=== PATIENT | male | born 1970 | race Caucasian/White ===

== ENCOUNTER 2018-03-23 22:16 | Emergency (ER) | payer BC ==
[2018-03-23 23:13] VITALS: BP 100/66
== END 2018-03-24 00:11 | disposition left against medical advice (07) ==
LOC: ER 22:16
DX: M54.5 Low back pain (principal); Z53.21 Procedure and treatment not carried out due to patient leaving prior to being seen by health care provider

== ENCOUNTER → 2018-03-25 | Outpatient (CLI) | payer BC ==
[2018-03-23 23:13] VITALS: BP 100/66
--- NOTE | 2018-03-26 08:11 | RAD ---
Right hip, 2 views, 03/25/2018: HISTORY: Hip pain No fracture or dislocation is identified. There is mild narrowing of the right hip joint with subchondral sclerosis and mild marginal spurring. The periarticular soft tissues are unremarkable. IMPRESSION: 1. No acute right hip abnormality is detected. 2. Mild degenerative change at the right hip joint. Electronically signed by: Dustin Ordonez MD (03/26/2018 8:09 AM) [facility]
== END | disposition home or self-care (01) ==
LOC: RAD 16:56
PROVIDERS: ATTEND Family Medicine
DX: M16.11 Unilateral primary osteoarthritis, right hip (principal); I10 Essential (primary) hypertension
CPT/HCPCS: 73502

== ENCOUNTER → 2018-04-06 | Outpatient (CLI) | payer BC ==
[2018-03-23 23:13] VITALS: BP 100/66
--- NOTE | 2018-04-06 13:32 | RAD ---
Lumbar spine, 3 views, 04/06/2018: HISTORY: Low back pain The lumbar vertebral heights and intervertebral disc spaces are well-maintained. No fracture or dislocation is identified. There are minimal sclerotic changes involving facet joints in the lower lumbar spine. Aortic calcific plaquing is present. IMPRESSION: No acute lumbar spine abnormality is detected. Thoracic spine, 3 views, 04/06/2018: No fracture or dislocation is identified. There are mild scattered marginal spurs. The paraspinous soft tissues are unremarkable. IMPRESSION: 1. Mild marginal spurring. 2. No acute abnormality is detected. Electronically signed by: Dustin Ordonez MD (04/06/2018 1:28 PM) [facility]
== END | disposition home or self-care (01) ==
LOC: RAD 09:31
PROVIDERS: ATTEND Physician Assistant Medical
DX: M46.04 Spinal enthesopathy, thoracic region (principal); I70.0 Atherosclerosis of aorta; I10 Essential (primary) hypertension; M16.11 Unilateral primary osteoarthritis, right hip
CPT/HCPCS: 72072; 72100

== ENCOUNTER → 2018-04-20 | Outpatient (CLI) | payer BC ==
[2018-03-23 23:13] VITALS: BP 100/66
[~2018-04-20] MED LIST: BUPIVACAINE MPF 0.5% 10 ML VIAL for KCIC. IJ ONE; IOHEXOL 300 MG/ML 50 ML VIAL. INT ART ONE; LIDOCAINE 1% Multi-Dose 20 ML VIAL. ID ONE; methylPREDNISolone ACETATE 40 MG/ML VIAL. INT ART ONE
--- NOTE | 2018-04-21 16:49 | KCIC ---
PROCEDURE Therapeutic right hip injection using fluoroscopic guidance. HISTORY Hip pain. Pain is chronic. TECHNIQUE The procedure was explained to the patient as were potential risks, including infection, bleeding or allergic reaction. All questions were answered. Informed written and verbal consent was obtained. The hip was prepped and draped in the usual sterile manner. Following administration of local anesthetic, a 22-gauge spinal needle was advanced into the hip joint without difficulty, with care taken to avoid the vascular structures. Stylet was removed and following negative aspiration, a mixture of 4 cc Omnipaque-300, 2 cc (80 mg) Depo-Medrol, 4 cc 0.5% Marcaine and 4 cc 1% lidocaine were injected without difficulty. Fluoroscopy demonstrates uniform and satisfactory distribution of the injection through the hip. The needle was removed. There was good hemostasis at the injection site. The patient left in stable condition without immediate complication. A single spot image was obtained. Note there is communication of the joint capsule with the iliopsoas bursa. FLUOROSCOPY TIME: 15 seconds Electronically signed by: Rasheed Lopez MD (04/21/2018 4:46 PM) [facility]
== END | disposition home or self-care (01) ==
LOC: KCIC 10:09
PROVIDERS: ATTEND Family Medicine
DX: M25.551 Pain in right hip (principal); G89.29 Other chronic pain; Z88.5 Allergy status to narcotic agent
CPT/HCPCS: 20610; 77002; J1030; Q9967

== ENCOUNTER 2020-04-14 15:55 | Emergency (ER) | payer BC ==
[~2020-04-14] VITALS: Ht 180.3 cm; Wt 110.0 kg
--- NOTE | 2020-04-14 16:10 | PHYS DOC ---
Past Medical History Past Medical History: Hypertension Past Surgical History: No Surgical History Smoking Status: Current Every Day Smoker Alcohol Use: Occasionally Drug Use: None General Adult EDM: Chief Complaint: ABDOMINAL PAIN HPI: HPI: The history was obtained from the patient. Patient is a 50-year-old male with PMH GERD, appendectomy who presents with a chief complaint of right lower quadrant abdominal pain. Patient states the pain began gradually yesterday. He states that involves his right lower quadrant. He states it is worse when he pushed on the area. He does note associated loose stool. He states he recently traveled like the [place]. Denies any exposure to well water or recent antibiotics. Denies any recent travel outside of the country. Denies urinary symptoms. Denies any masses or bulges in his groin. Denies syncope. States that his family physician wanted him evaluated in the emergency department today for potential surgical complication. Denies any fevers. Denies known exposure to coronavirus. States pain is sharp in nature. No other complaints. Review of Systems: Review of Systems: Constitutional: Denies fever or chills. [] Eyes: Denies change in visual acuity. [] HENT: Denies nasal congestion or sore throat. [] Respiratory: Denies cough or shortness of breath. [] Cardiovascular: Denies chest pain or edema. [] GI: Positive for abdominal pain and diarrhea : Denies dysuria. [] Musculoskeletal: Denies back pain or joint pain. [] Integument: Denies rash. [] Neurologic: Denies headache, focal weakness or sensory changes. [] Endocrine: Denies polyuria or polydipsia. [] Lymphatic: Denies swollen glands. [] Psychiatric: Denies depression or anxiety. [] Heart Score: Risk Factors: Risk Factors: DM, Current or recent (<one month) smoker, HTN, HLP, family history of CAD, obesity. Risk Scores: Score 0 - 3: 2.5% MACE over next 6 weeks - Discharge Home Score 4 - 6: 20.3% MACE over next 6 weeks - Admit for Clinical Observation Score 7 - 10: 72.7% MACE over next 6 weeks - Early Invasive Strategies Allergies: Allergies: Allergies Coded Allergies Type Severity Reaction Last Updated Verified morphine Adverse Reaction Mild Nausea and Vomiting 08/31/14 No Physical Exam: PE: Constitutional: Well developed, well nourished, no acute distress, non-toxic appearance. [] HENT: Normocephalic, atraumatic, bilateral external ears normal, oropharynx moist, no oral exudates, nose normal. [] Eyes: PERRLA, EOMI, conjunctiva normal, no discharge. [] Neck: Normal range of motion, no tenderness, supple, no stridor. [] Cardiovascular:Heart rate regular rhythm, no murmur [] Lungs & Thorax: Bilateral breath sounds clear to auscultation [] Abdomen: Tenderness palpation localized to the right lower quadrant. Involuntary guarding appreciated. No rigidity noted. Skin: Warm, dry, no erythema, no rash. [] Back: No tenderness, no CVA tenderness. [] Extremities: No tenderness, no cyanosis, no clubbing, ROM intact, no edema. [] Neurologic: Alert and oriented X 3, normal motor function, normal sensory function, no focal deficits noted. [] Psychologic: Affect normal, judgement normal, mood normal. [] Current Patient Data: Labs: Laboratory Tests Test 04/14/20 16:45 04/14/20 17:20 White Blood Count 6.6 x10^3/uL Red Blood Count 5.12 x10^6/uL Hemoglobin 16.1 g/dL Hematocrit 45.9 % Mean Corpuscular Volume 90 fL Mean Corpuscular Hemoglobin 32 pg Mean Corpuscular Hemoglobin Concent 35 g/dL Red Cell Distribution Width 12.7 % Platelet Count 185 x10^3/uL Neutrophils (%) (Auto) 43 % Lymphocytes (%) (Auto) 45 % Monocytes (%) (Auto) 9 % Eosinophils (%) (Auto) 2 % Basophils (%) (Auto) 1 % Neutrophils # (Auto) 2.9 x10^3/uL Lymphocytes # (Auto) 3.0 x10^3/uL Monocytes # (Auto) 0.6 x10^3/uL Eosinophils # (Auto) 0.2 x10^3/uL Basophils # (Auto) 0.0 x10^3/uL Sodium Level 140 mmol/L Potassium Level 4.0 mmol/L Chloride Level 103 mmol/L Carbon Dioxide Level 27 mmol/L Anion Gap 10 Blood Urea Nitrogen 11 mg/dL Creatinine 1.1 mg/dL Estimated GFR (Cockcroft-Gault) 70.3 BUN/Creatinine Ratio 10 Glucose Level 100 mg/dL Calcium Level 9.0 mg/dL Total Bilirubin 0.5 mg/dL Aspartate Amino Transf (AST/SGOT) 38 U/L Alanine Aminotransferase (ALT/SGPT) 86 U/L Alkaline Phosphatase 72 U/L Total Protein 7.2 g/dL Albumin 4.0 g/dL Albumin/Globulin Ratio 1.3 Lipase 130 U/L Urine Collection Type Void Urine Color Yellow Urine Clarity Clear Urine pH 5.5 Urine Specific Candor 1.010 Urine Protein Negative mg/dL Urine Glucose (UA) Negative mg/dL Urine Ketones (Stick) Negative mg/dL Urine Blood Trace Urine Nitrite Negative Urine Bilirubin Negative Urine Urobilinogen Dipstick 0.2 mg/dL Urine Leukocyte Esterase Negative Urine RBC 1-2 /HPF Urine WBC Occ /HPF Urine Squamous Epithelial Cells None /LPF Urine Bacteria 0 /HPF Urine Mucus Slight /LPF Current Medications Medications (Trade) Dose Ordered Sig/Corina Route PRN Reason Start Time Stop Time Status Last Admin Dose Admin Iohexol (Omnipaque 300 Mg/ml) 75 ml 1X ONCE IV 04/14/20 17:30 04/14/20 17:31 DC 04/14/20 17:36 Info (CONTRAST GIVEN -- Rx MONITORING) 1 each PRN DAILY PRN MC SEE COMMENTS 04/14/20 17:30 04/16/20 17:29 EKG: EKG: [] Radiology/Procedures: Radiology/Procedures: [facility] [address] [place] [address] IMAGING REPORT Signed PATIENT: ANABEL TABOR ACCOUNT: [id number] : 1970 LOCATION: ER AGE: 50 SEX: M EXAM STATUS: REG ER ORD. PHYSICIAN: JIM DIAZ DO REASON: RLQ pain. h/o appendectomy PROCEDURE: CT ABD PELV W/ IV CONTRST ONLY CT ABD PELV W/ IV CONTRST ONLY History: Reason: RLQ pain. h/o appendectomy Technique: After the administration of intravenous contrast, CT imaging was performed of the abdomen and pelvis. Multiplanar images are reviewed. Exposure: One or more of the following individualized dose reduction techniques were utilized for this examination: 1. Automated exposure control 2. Adjustment of the mA and/or kV according to patient size 3. Use of iterative reconstruction technique. Comparison: None Findings: Lower chest: Small right lower lobe lateral pleural-based 3 mm nodule (series 2 image 4). No consolidation or pleural effusion. Abdomen and pelvis: The liver, spleen, adrenal glands, pancreas and gallbladder are unremarkable. Tiny nonobstructing bilateral intrarenal calculi, right greater than left. No hydronephrosis. Mild nonspecific perinephric stranding, likely age-related or medical renal disease. Decompressed urinary bladder. Moderate distal ileal and terminal ileal wall thickening with minimal adjacent fat infiltration. Prior appendectomy. No evidence of bowel obstruction. No pathologic lymphadenopathy. No ascites. Small fat-containing umbilical hernia. Mild atheromatous plaque throughout the nonaneurysmal abdominal aorta and branch vessels. Bones: No pathologic osseous lesions. Impression: 1. Distal and terminal ileal wall thickening with adjacent fat infiltration, may represent infectious or inflammatory ileitis. 2. Nonobstructing bilateral intrarenal calculi. 3. Tiny right lower lobe pulmonary nodule. Recommend one-year follow-up if high risk. Electronically signed by: Ray Ruth DO (04/14/2020 5:58 PM) [facility] DICTATED and SIGNED BY: RAY RUTH DO DATE: 04/14/201757 [] Course & Med Decision Making: Course & Med Decision Making Pertinent Labs and Imaging studies reviewed. (See chart for details) [] Patient is an overall well-appearing 50-year-old male who presents with chief complaint of right lower quadrant abdominal discomfort. Initial vital signs unremarkable. He does note associated loose stool. Basic labs were obtained and were unremarkable. CT imaging is pending at this time. Stool studies were sent for analysis. CT materials no acute surgical abnormality. Patient does have findings of enteritis inflammatory versus infectious. Patient symptoms are most likely inflammatory nature. However, he will be discharged home with a prescription of Augmentin. He was instructed to fill this prescription in the next 2 to 3 days should his symptoms not improve or worsen. He has tolerated p.o. in the emergency department. His abdomen is benign on repeat examination. Vital signs been stable. He was instructed to follow-up with his primary care physician in the next 2 to 3 days. Return precautions discussed and understood. Stable for discharge home. COVID-19 CRITERIA: The patient was evaluated during the global COVID-19 pandemic, and that diagnosis was suspected/considered upon their initial presentation. Their evaluation, treatment and testing was consistent with c urrent guidelines for patients who present with complaints or symptoms that may be related to COVID-19. Clara Disclaimer: Clara Disclaimer: This electronic medical record was generated, in whole or in part, using a voice recognition dictation system. Departure Departure Impression: Primary Impression: Abdominal pain Qualified Codes: R10.31 - Right lower quadrant pain Additional Impression: Diarrhea Qualified Codes: R19.7 - Diarrhea, unspecified Disposition: 01 HOME, SELF-CARE Condition: STABLE Referrals: BORIS PARKS MD (PCP) Patient Instructions: Diarrhea Additional Instructions: You have been tested for or diagnosed with COVID-19. It is an infection caused by a new type of coronavirus. COVID-19 will cause cold-like or mild flu symptoms in most. It can cause more severe symptoms like problems breathing in some. There is no treatment for COVID-19. The body will clear the infection over time. Self-care will help to ease discomfort. Steps to Take: Self-Care Rest as needed. Healthy habits may help you feel better. Steps include: Choose healthy foods including fruits and vegetables. Drink water throughout the day. Get plenty of sleep each night. If you smoke, try to quit. It may ease breathing. Avoid alcohol. Keep Others Healthy The virus can spread to others. Droplets are released every time you sneeze or cough. The droplets can get into the mouth, nose, or eyes of people near you and lead to infection. To lower the chances of spreading COVID-19 to others: Stay at home until your doctor has said it is safe to leave. If you tested positive this will mean staying isolated until both of the following are true: At least 7 days have passed since the start of illness. You are free of fever for at least 72 hours without the use of medicine. During this time: - Avoid public areas, events, or transportation. Do not return to work or school until your doctor has said it is safe to do so. - Call ahead if you need to go to a medical center. Let them know you may have COVID-19. It will help them guide you where to go. They may also ask you to wear a facemask when you come to the office. - If you call for emergency medical services, let them know you may have COVID- 19. While at home: - Try to avoid close contact with others. Stay about 6 feet away. - If possible, spend most of your time in a separate room from others. - Use a face mask if you will be in close contact with others such as sharing a room or vehicle. - Have someone wipe down common surfaces in the home. Use household generator mechanic every day on areas like doorknobs, counters, or sinks. - Cough or sneeze into a tissue. Throw the tissue away right after use. If a tissue is not available, cough or sneeze into your elbow. - Wash your hands often. Wash them after sneezing or coughing. Use soap and water and wash for at least 20 seconds. Alcohol based hand plate cleaner can be used if soap and marcso er is not available. - Do not prepare food for others. Avoid sharing personal items like forks, spoons, or toothbrushes. - Avoid close contact with pets while you are sick. There is no evidence of the virus passing to pets. This is a safety step until more is known about this virus. Isolation can be frustrating. Social interaction can help. Keep in touch with friends and family through phone and tech options. You can still interact with others in your home, just keep a safe distance of about 6 feet. Follow-up: Your doctors office will check in with you to see if there are any changes in your health. You may be asked to keep track of symptoms to share with them. They will also let you know when you are clear to be in public again. Problems to Look Out For: Contact your doctor if your recovery is not going as you expect. Get emergency care if you have problems such as: - Trouble breathing - Nonstop chest pain or pressure - Changes in awareness, confusion, or problems waking - Lips or face have bluish color - Worsening of symptoms If you think you have an emergency, call for emergency medical services right away. [facility] Ondansetron Hcl (ZOFRAN) 4 Mg Tablet 4 MG PO PRN TID PRN for NAUSEA, #9 nausea/vomiting Prov: JIM DIAZ DO 04/14/20 Amoxicillin/Potassium Clav (AUGMENTIN 875-125 TABLET) 1 Each Tablet 1 TAB PO BID for 10 Days, #20 TAB 0 Refills Prov: JIM DIAZ DO 04/14/20 Justicifation of Admission Dx: Justifications for Admission: Justification of Admission Dx: N/A JIM DIAZ DO Apr 14, 2020 16:10
[2020-04-14 16:40] VITALS: BP 124/78
[2020-04-14 16:59] LABS: BASO % 1 % (0-3); EOS # 0.2 x10^3/uL (0.0-0.7); EOS % 2 % (0-3); HEMATOCRIT 45.9 % (39.0-53.0); HEMOGLOBIN 16.1 g/dL (13.0-17.5); LYMPH % 45 % (24-48); MEAN CORPUSCULAR HEMOGLOBIN 32 pg (25-35); MEAN CORPUSCULAR HGB CONC 35 g/dL (31-37); MEAN CORPUSCULAR VOLUME 90 fL (79-100); MONO # 0.6 x10^3/uL (0.0-1.1); MONO % 9 % (0-9); NEUT # 2.9 x10^3/uL (1.8-7.7); NEUT % 43 % (31-73); PLATELET COUNT 185 x10^3/uL (140-400); RED BLOOD COUNT 5.12 x10^6/uL (4.30-5.70); RED CELL DISTRIBUTION WIDTH 12.7 % (11.5-14.5); WHITE BLOOD COUNT 6.6 x10^3/uL (4.0-11.0)
[2020-04-14 17:11] LABS: CREATININE 1.1 mg/dL (0.7-1.3); GFR 70.3
[2020-04-14 17:17] LABS: ALBUMIN/GLOBULIN RATIO 1.3 (1.0-1.7); TOTAL BILIRUBIN 0.5 mg/dL (0.2-1.0); TOTAL PROTEIN 7.2 g/dL (6.4-8.2)
[2020-04-14] MEDS ORDERED: CONTRAST GIVEN. MC PRN (17:30)
[2020-04-14] MEDS ORDERED: IOHEXOL 300 MG/ML 100ML VIAL. IV ONE (17:30)
[2020-04-14 17:32] LABS: BILIRUBIN,URINE NEGATIVE (NEG); CLARITY,URINE CLEAR; COLOR,URINE YELLOW; NITRITE,URINE NEGATIVE (NEG); PH,URINE 5.5 (<5.0-8.0); PROTEIN,URINE NEGATIVE (NEG-TRACE); UROBILINOGEN,URINE 0.2 mg/dL (0.2 mg/dL)
[2020-04-14 17:37] LABS: BACTERIA,URINE 0 /HPF (0-FEW); WBC,URINE OCC /HPF (0-4)
--- NOTE | 2020-04-14 18:01 | RAD ---
CT ABD PELV W/ IV CONTRST ONLY History: Reason: RLQ pain. h/o appendectomy Technique: After the administration of intravenous contrast, CT imaging was performed of the abdomen and pelvis. Multiplanar images are reviewed. Exposure: One or more of the following individualized dose reduction techniques were utilized for this examination: 1. Automated exposure control 2. Adjustment of the mA and/or kV according to patient size 3. Use of iterative reconstruction technique. Comparison: None Findings: Lower chest: Small right lower lobe lateral pleural-based 3 mm nodule (series 2 image 4). No consolidation or pleural effusion. Abdomen and pelvis: The liver, spleen, adrenal glands, pancreas and gallbladder are unremarkable. Tiny nonobstructing bilateral intrarenal calculi, right greater than left. No hydronephrosis. Mild nonspecific perinephric stranding, likely age-related or medical renal disease. Decompressed urinary bladder. Moderate distal ileal and terminal ileal wall thickening with minimal adjacent fat infiltration. Prior appendectomy. No evidence of bowel obstruction. No pathologic lymphadenopathy. No ascites. Small fat-containing umbilical hernia. Mild atheromatous plaque throughout the nonaneurysmal abdominal aorta and branch vessels. Bones: No pathologic osseous lesions. Impression: 1. Distal and terminal ileal wall thickening with adjacent fat infiltration, may represent infectious or inflammatory ileitis. 2. Nonobstructing bilateral intrarenal calculi. 3. Tiny right lower lobe pulmonary nodule. Recommend one-year follow-up if high risk. Electronically signed by: Ray Ruth DO (04/14/2020 5:58 PM) [facility]
[2020-04-14] MEDS ORDERED: ONDA4TAB7 PO (18:07)
[2020-04-14] MEDS ORDERED: AMOX1TAB61 PO (18:07)
== END 2020-04-14 18:40 | disposition home or self-care (01) ==
LOC: ER 15:55
DX: R10.31 Right lower quadrant pain (principal); R19.7 Diarrhea, unspecified; Z20.828 Contact with and (suspected) exposure to other viral communicable diseases; R91.1 Solitary pulmonary nodule; K21.9 Gastro-esophageal reflux disease without esophagitis; I10 Essential (primary) hypertension; F17.200 Nicotine dependence, unspecified, uncomplicated; Z90.89 Acquired absence of other organs; Z88.5 Allergy status to narcotic agent
CPT/HCPCS: 36415; 74177; 80053; 81001; 83690; 85025; 87177; 87209; 87493; 99285; Q9967; U0003

== ENCOUNTER 2021-05-27 18:08 | Emergency (ER) | payer BC ==
[~2021-05-27 18:08] MED LIST changes: +AMOX1TAB61 PO; -BUPIVACAINE MPF 0.5% 10 ML VIAL for KCIC. IJ ONE; -IOHEXOL 300 MG/ML 50 ML VIAL. INT ART ONE; -LIDOCAINE 1% Multi-Dose 20 ML VIAL. ID ONE; +ONDA4TAB7 PO; -methylPREDNISolone ACETATE 40 MG/ML VIAL. INT ART ONE
== END 2021-05-27 19:25 | disposition left against medical advice (07) ==
LOC: ER 18:08
DX: M79.7 Fibromyalgia (principal); Z53.21 Procedure and treatment not carried out due to patient leaving prior to being seen by health care provider